=== PATIENT | male | born 1960 | race African-American/Black ===

== ENCOUNTER 2025-03-13 09:34 | Outpatient (CLI) | payer OTHER ==
[2025-03-13 11:29] LABS: Hematocrit 39.1 % (38.8-50.0); Hemoglobin 12.1 g/dL (13.5-17.5); Mean Corpuscular Hemoglobin 22.4 pg (27.0-33.0); Mean Corpuscular Volume 72.5 fL (81.2-95.1); Platelet Count 229 10x3/uL (150-450); Red Blood Cell (RBC) Count 5.39 10x6/uL (4.32-5.72); White Blood Cell (WBC) Count 5.20 10x3/uL (3.5-10.5)
[2025-03-13 11:43] LABS: Anion Gap 12 mmol/L (10-20); BUN (Urea Nitrogen) 17 mg/dL (8.4-25.7); Calc. Creatinine Clearance 0 mL/min (70-130); Calcium 9.3 mg/dL (7.8-10.44); Carbon Dioxide 23 mmol/L (23-31); Chloride 109 mmol/L (98-107); Glucose 91 mg/dL (80-115); Potassium 4.2 mmol/L (3.5-5.1); Sodium 140 mmol/L (136-145)
[2025-03-13 12:22] LABS: #Basophils 0.03 10x3/uL (0.0-0.2); #Eosinophils 0.14 10x3/uL (0.0-0.5); #Monocytes 0.60 10x3/uL (0.0-1.1); #Neutrophils 3.17 10x3/uL (1.5-8.4); %Basophils 0.6 % (0.0-2.0); %Eosinophils 2.7 % (0.0-6.0); %Lymphocytes 24.0 % (18.0-47.0); %Monocytes 11.5 % (0.0-10.0); %Neutrophils 61.0 % (40.0-75.0); MDiff Complete? YES; Microcytosis SLIGHT = 6-15 cells (100X) (0-5/hpf)
== END 2025-03-13 09:35 | disposition home or self-care (01) ==
LOC: CSHLAB 09:34
PROVIDERS: ATTEND Specialist
DX: Z01.818 Encounter for other preprocedural examination (principal); L72.3 Sebaceous cyst
CPT/HCPCS: 71046; 80048; 85025; 93005; 93010

== ENCOUNTER 2025-03-20 06:01 | Day surgery (SDC) | payer OTHER ==
[2025-03-20] MEDS ORDERED: Ketorolac Tromethamine 30 MG (1 mL) VIAL ONE (06:22)
[2025-03-20] MEDS ORDERED: Acetaminophen 500 MG TAB ONE (06:22)
[2025-03-20] MEDS ORDERED: Ondansetron PF 4 MG/2 ML Vial ONE (06:46)
[2025-03-20] MEDS ORDERED: Lidocaine 1% PF 5 ML VIAL ONE (06:46)
[2025-03-20] MEDS ORDERED: Rocuronium Bromide 10 MG/ML (10ML VIAL) ONE (06:46)
[2025-03-20] MEDS ORDERED: PROPOFOL 40 ML ONE (06:46)
[2025-03-20] MEDS ORDERED: SUGAMMADEX SODIUM 200 MG/2 ML VIAL ONE (06:46)
[2025-03-20] MEDS ORDERED: Glycopyrrolate 0.2 MG/ML 5 ML SYRINGE ONE (06:47)
[2025-03-20] MEDS ORDERED: CEFAZOLIN 2 GM VIAL ONE (06:52)
[2025-03-20] MEDS ORDERED: Bupivacaine/Epinephrine 0.25% 30 ML VIAL ONE (06:53)
[2025-03-20] MEDS ORDERED: Bacitracin 1 PK ONE (08:25)
[2025-03-20] MEDS ORDERED: HYDROcodone/Acetaminophen 5/325 mg Tablet ONE (09:19)
== END 2025-03-20 09:50 | disposition home or self-care (01) ==
LOC: CSHSDC 06:01
PROVIDERS: ATTEND Specialist
PROC: 0HX6XZZ Transfer Back Skin, External Approach (ICD-10-PCS; principal; 2025-03-20)
DX: L72.0 Epidermal cyst (principal); H61.23 Impacted cerumen, bilateral; Z86.0100 Personal history of colon polyps, unspecified
CPT/HCPCS: 88304; J1100; J1885; J2405; J2704; J3010